=== PATIENT | male | born 1965 | race Caucasian/White ===

== ENCOUNTER 2017-07-17 14:00 | Emergency (ER) | payer SELFPAY ==
[2017-07-17] MEDS ORDERED: OXYCODONE-ACETAMINOPHEN 5-325 MG TABLET PO ONE (15:34)
--- NOTE | 2017-07-17 15:34 | ER Document Report ---
ED Hand/Wrist Injury - General Mode of Arrival: Ambulatory Information source: Patient TRAVEL OUTSIDE OF THE [place] IN LAST 30 DAYS: No - HPI Injury to: Middle finger Onset: Other - 2 weeks Where: Outdoors Timing: Still present, Worse Quality of pain: Pressure, Sharp, Throbbing Severity: Moderate Pain Level: 4 Context: Crush <MARLI DOSHI - Last Filed: 07/17/17 17:23> <PITA MCKEON - Last Filed: 07/17/17 18:40> - General Chief Complaint: Hand Pain Stated Complaint: RIGHT MIDDLE FINGER INJURY Time Seen by Provider: 07/17/17 14:36 Notes: 52-year-old male presents to ED for injury to his right third finger about 2 weeks ago. He states he was using a drill when his finger got caught in a drill trigger twisted his finger all around injured his nail. He states the nail later fell off and that he has tried several times to have the finger healed but every time he just forgets that he had healed he hits it on something and becomes inflamed again he states now the pack finger is red and inflamed draining and looks infected to him. 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 denies: COPD , CVA, Malignancy, Thyroid Disfunction Patient has suicidal ideation: No Patient has homicidal ideation: No - Past Medical History Cardiac Medical History: Reports: Hx Hypercholesterolemia, Hx Hypertension Pulmonary Medical History: Reports: None EENT Medical History: Reports: None Neurological Medical History: Reports: None Endocrine Medical History: Reports: None Renal/ Medical History: Reports: None Malignancy Medical History: Reports None GI Medical History: Reports: None Musculoskeltal Medical History: Reports Hx Arthritis Skin Medical History: Reports None Psychiatric Medical History: Reports: None Traumatic Medical History: Reports: None Infectious Medical History: Reports: None Past Surgical History: Reports: Hx Inguinal Hernia - Immunizations Immunizations up to date: No Hx Diphtheria, Pertussis, Tetanus Vaccination: No <VISHNU DOSHIQUELINE - Last Filed: 07/17/17 17:23> Review of Systems - Review of Systems Constitutional: No symptoms reported EENT: No symptoms reported Cardiovascular: No symptoms reported Respiratory: No symptoms reported Gastrointestinal: No symptoms reported Genitourinary: No symptoms reported Male Genitourinary: No symptoms reported Musculoskeletal: Other - The end of the finger inflamed red draining Skin: Change in color Hematologic/Lymphatic: No symptoms reported Neurological/Psychological: No symptoms reported <VISHNU DOSHIQUELINE - Last Filed: 07/17/17 17:23> Physical Exam - Vital signs Interpretation: Normal - General General appearance: Appears well, Alert - HEENT Head: Normocephalic, Atraumatic Eyes: Normal Pupils: PERRL - Respiratory Respiratory status: No respiratory distress Chest status: Nontender Breath sounds: Normal Chest palpation: Normal - Cardiovascular Rhythm: Regular Heart sounds: Normal auscultation Murmur: No - Abdominal Inspection: Normal Distension: No distension Bowel sounds: Normal Tenderness: Nontender Organomegaly: No organomegaly - Back Back: Normal, Nontender - Extremities General upper extremity: Normal temperature General lower extremity: Normal inspection, Nontender, Normal color, Normal ROM , Normal temperature, Normal weight bearing, Other. No: Clarisse's sign Hand: Tender, Ecchymosis, Nail injury - Nail missing, No evidence of human bite , No evidence of FB, Swelling - Third finger erythematous swollen tender weeping. No: Instability - Neurological Neuro grossly intact: Yes Cognition: Normal Orientation: AAOx4 Ning Coma Scale Eye Opening: Spontaneous Kempner Coma Scale Verbal: Oriented Kempner Coma Scale Motor: Obeys Commands Ning Coma Scale Total: 15 Speech: Normal Motor strength normal: LUE, RUE, LLE, RLE Sensory: Normal - Psychological Associated symptoms: Normal affect, Normal mood - Skin Skin Temperature: Warm Skin Moisture: Dry Skin Color: Normal <VISHNU DOSHIQUELINE - Last Filed: 07/17/17 17:23> - Vital signs Vitals: Temp Pulse Resp BP Pulse Ox 98.4 F 91 18 123/86 H 95 07/17/17 14:08 07/17/17 14:08 07/17/17 14:08 07/17/17 14:08 07/17/17 14:08 Course - Laboratory Result Diagrams: 07/17/17 16:35 07/17/17 16:35 <MARLI DOSHI - Last Filed: 07/17/17 17:23> - Laboratory Result Diagrams: 07/17/17 16:35 07/17/17 16:35 <PITA MCKEON - Last Filed: 07/17/17 18:40> - Re-evaluation Re-evalutation: 07/17/17 18:35 I personally evaluated the patient. Patient's distal phalanx of the right middle finger is very erythematous and tender. Exam is consistent with infection. I also reviewed the patient's x-ray with the radiologist. X-rays consistent with a fracture and osteomyelitis. Patient was informed of this and the need for admission to the hospital. I spoke with the hospitalist here, Dr. Lake. She stated that patient was unable to be admitted here due to no orthopedics or infectious disease being available. I then spoke with an orthopedic surgeon at [facility]. The orthopedic surgeon at [facility] stated that orthopedic consultation at this point in the patient's clinical course is not necessary and that the patient only needs IV antibiotics and infectious disease consultation. I then spoke with Dr. Lake again who stated that patient still required transfer as there is no infectious disease available. I then called back and spoke with [facility] hospitalist, Dr. Doe and Dr. Anderson. They accepted the patient in transfer. Patient has received Unasyn at this time. We have been informed no beds will be available at [facility] this evening so patient's will be given IV Unasyn every 6 and monitored here. (PITA MCKEON) - Vital Signs Vital signs: Temp Pulse Resp BP Pulse Ox 98.4 F 78 16 150/78 H 96 07/17/17 14:08 07/17/17 17:38 07/17/17 17:38 07/17/17 17:38 07/17/17 17:38 - Laboratory Laboratory results interpreted by me: 07/17/17 07/17/17 16:35 16:35 RDW 14.5 H BUN 31 H
--- NOTE | 2017-07-17 15:36 | RADIOLOGY REPORT (SQ) ---
EXAM DESCRIPTION: FINGER RIGHT COMPLETED DATE/TIME: 07/17/2017 3:16 pm REASON FOR STUDY: injury COMPARISON: None. NUMBER OF VIEWS: Three views. TECHNIQUE: AP, lateral, and oblique images acquired of the right third finger. LIMITATIONS: None. FINDINGS: MINERALIZATION: Normal. BONES: There is a transverse fracture of the distal phalanx of the 3rd digit with dorsal displacement of the distal fragment. SOFT TISSUES: No soft tissue swelling. No foreign body. OTHER: No other significant finding. IMPRESSION: Fracture of the 3rd distal phalanx. COMMENT: SITE OF TRAUMA/COMPLAINT MARKED/STAMP COMPLETED: Yes TECHNICAL DOCUMENTATION: JOB ID: [id number] [employer]- All Rights Reserved
[2017-07-17] MEDS ORDERED: NORMAL SALINE 1000 ML 1,000 ML IV PRN (16:20)
[2017-07-17] MEDS ORDERED: AMPICILLIN SOD/SULBACTAM 3 GM VIAL IV ONE (16:21)
[2017-07-17 17:04] LABS: ABSOLUTE EOSINOPHILS # (AUTO) 0.1 10^3/uL (0.0-0.6); ABSOLUTE LYMPHOCYTES (AUTO) 1.9 10^3/uL (0.5-4.7); ABSOLUTE MONOCYTES (AUTO) 0.7 10^3/uL (0.1-1.4); ABSOLUTE NEUT (AUTO) 5.5 10^3/uL (1.7-8.2); BASOPHILS % (AUTO) 0.4 % (0-2); EOSINOPHILS % (AUTO) 1.4 % (0-6); HEMATOCRIT 40.8 % (37.9-51.0); HEMOGLOBIN 13.6 g/dL (13.5-17.0); LYMPHOCYTES % (AUTO) 22.7 % (13-45); MEAN CORPUSCULAR HEMOGLOBIN 27.6 pg (27.0-33.4); MEAN CORPUSCULAR HGB CONC 33.4 g/dL (32.0-36.0); MEAN CORPUSCULAR VOLUME 83 fl (80-97); MONOCYTES % (AUTO) 8.4 % (3-13); RED BLOOD COUNT 4.93 10^6/uL (4.35-5.55); RED CELL DISTRIBUTION WIDTH 14.5 % (11.5-14.0); SEGMENTED NEUTROPHILS % (AUTO) 67.1 % (42-78); WHITE BLOOD COUNT 8.3 10^3/uL (4.0-10.5)
[2017-07-17 17:25] LABS: ALANINE AMINOTRANSFERASE 39 U/L (21-72); ALBUMIN 4.4 g/dL (3.5-5.0); ALKALINE PHOSPHATASE 122 U/L (38-126); ANION GAP 11 (5-19); ASPARTATE AMINO TRANSFERASE 30 U/L (17-59); BILIRUBIN,DIRECT 0.3 mg/dL (0.0-0.4); BILIRUBIN,TOTAL 0.3 mg/dL (0.2-1.3); BLOOD UREA NITROGEN 31 mg/dL (7-20); CALCIUM 9.6 mg/dL (8.4-10.2); CARBON DIOXIDE 29 mmol/L (22-30); CHLORIDE 101 mmol/L (98-107); CREATININE RESULT 1.06 mg/dL (0.52-1.25); GLUCOSE 82 mg/dL (75-110); POTASSIUM 4.2 mmol/L (3.6-5.0); SODIUM 141.1 mmol/L (137-145); TOTAL PROTEIN 7.1 g/dL (6.3-8.2)
[2017-07-17] MEDS ORDERED: OXYCODONE-ACETAMINOPHEN 5-325 MG TABLET PO PRN (18:47)
[2017-07-17 21:57] VITALS: BP 147/89
[2017-07-17] MEDS ORDERED: AMPICILLIN SOD/SULBACTAM 3 GM VIAL IV SCH (22:20)
[2017-07-18] MEDS ORDERED: METHADONE HCL 10 MG TABLET PO SCH (10:00)
== END 2017-07-17 22:30 | disposition short-term general hospital (02) ==
LOC: ER 14:00
DX: M86.9 Osteomyelitis, unspecified (principal); S60.131A Contusion of right middle finger with damage to nail, initial encounter; W29.8XXA Contact with other powered hand tools and household machinery, initial encounter; I10 Essential (primary) hypertension; Z87.891 Personal history of nicotine dependence
CPT/HCPCS: 99285; 96361; 96365; 36415; 87040; 85025; 87077; 80053; 83605; 73140; J0295; J7030

== ENCOUNTER 2019-03-25 07:14 | Emergency (ER) | payer OTHER, MEDICAID ==
[2019-03-25 08:21] LABS: ABSOLUTE EOSINOPHILS # (AUTO) 0.1 10^3/uL (0.0-0.6); ABSOLUTE LYMPHOCYTES (AUTO) 0.6 10^3/uL (0.5-4.7); ABSOLUTE MONOCYTES (AUTO) 0.3 10^3/uL (0.1-1.4); BASOPHILS % (AUTO) 0.2 % (0-2); HEMATOCRIT 35.8 % (37.9-51.0); HEMOGLOBIN 11.8 g/dL (13.5-17.0); LYMPHOCYTES % (AUTO) 7.7 % (13-45); MEAN CORPUSCULAR HGB CONC 33.1 g/dL (32.0-36.0); MEAN CORPUSCULAR VOLUME 82 fl (80-97); MONOCYTES % (AUTO) 4.2 % (3-13); PLATELET COUNT 228 10^3/uL (150-450); RED BLOOD COUNT 4.39 10^6/uL (4.35-5.55); RED CELL DISTRIBUTION WIDTH 14.5 % (11.5-14.0); SEGMENTED NEUTROPHILS % (AUTO) 86.9 % (42-78); TOTAL CELLS COUNTED % (AUTO) 100 %; WHITE BLOOD COUNT 8.1 10^3/uL (4.0-10.5)
[2019-03-25 08:28] LABS: APPEARANCE,URINE SLIGHTLY-CLOUDY; BILIRUBIN,URINE NEGATIVE (NEGATIVE); COLOR,URINE YELLOW; GLUCOSE, URINE NEGATIVE (NEGATIVE); KETONES,URINE NEGATIVE (NEGATIVE); LEUKOCYTE ESTERASE,URINE NEGATIVE (NEGATIVE); NITRITE,URINE NEGATIVE (NEGATIVE); PROTEIN,URINE 100 mg/dL (NEGATIVE); URINE SPECIFIC GRAVITY 1.026
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
[2019-03-25 08:44] LABS: ALANINE AMINOTRANSFERASE 28 U/L (21-72); ALBUMIN 3.9 g/dL (3.5-5.0); ALKALINE PHOSPHATASE 112 U/L (38-126); ANION GAP 10 (5-19); ASPARTATE AMINO TRANSFERASE 27 U/L (17-59); BILIRUBIN,DIRECT 0.3 mg/dL (0.0-0.4); BILIRUBIN,TOTAL 0.4 mg/dL (0.2-1.3); BLOOD UREA NITROGEN 29 mg/dL (7-20); CALCIUM 9.2 mg/dL (8.4-10.2); CARBON DIOXIDE 31 mmol/L (22-30); CHLORIDE 99 mmol/L (98-107); GLUCOSE 207 mg/dL (75-110); POTASSIUM 4.5 mmol/L (3.6-5.0); SODIUM 140.2 mmol/L (137-145); TOTAL PROTEIN 6.8 g/dL (6.3-8.2)
[2019-03-25] MEDS ORDERED: NORMAL SALINE 1000 ML 1,000 ML IV ONE (09:20)
[2019-03-25] MEDS ORDERED: ONDANSETRON HCL INJ/PF 4 MG/2 ML SDV IV ONE (09:20)
[2019-03-25] MEDS ORDERED: HYDROMORPHONE HCL INJ/PF 2 MG/ML AMPULE IV ONE (09:20)
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
[2019-03-25 11:36] VITALS: BP 142/66
== END 2019-03-25 11:36 | disposition home or self-care (01) ==
LOC: ER 07:14
DX: S27.0XXA Traumatic pneumothorax, initial encounter (principal); S27.321A Contusion of lung, unilateral, initial encounter; S22.42XA Multiple fractures of ribs, left side, initial encounter for closed fracture; V43.54XA Car driver injured in collision with van in traffic accident, initial encounter; Y93.89 Activity, other specified; Y92.411 Interstate highway as the place of occurrence of the external cause; Z87.891 Personal history of nicotine dependence; I10 Essential (primary) hypertension
CPT/HCPCS: 99284; 96361; 96374; 96375; 36415; 85025; 80053; 81001; 71101; 71260; J1170; J2405; J7030